=== PATIENT | female | born 1995 | race Caucasian/White ===

== ENCOUNTER 2025-02-26 03:53 | Emergency (ER) | payer BC, OTHER ==
[2025-02-26] MEDS: Ondansetron 4 MG/2 ML SDV IVPUSH STA ×2 (04:13→04:50)
[2025-02-26 04:26] LABS: BASOPHILS ABSOLUTE AUTO 0.04 K/uL (0.00-0.20); BASOPHILS PERCENT AUTO 0.6 % (0.0-1.0); EOSINOPHILS ABSOLUTE AUTO 0.05 K/uL (0.00-0.45); EOSINOPHILS PERCENT AUTO 0.8 % (0.0-6.0); IMMATURE GRAN ABSOLUTE AUTO 0.01 K/uL (0.00-0.05); IMMATURE GRAN PERCENT AUTO 0.2 % (0.0-0.4); LYMPHOCYTES ABSOLUTE AUTO 2.67 K/uL (1.00-4.80); LYMPHOCYTES PERCENT AUTO 43.1 % (24.0-44.0); MEAN PLATELET VOLUME 11.0 fL (9.4-12.3); MONOCYTES ABSOLUTE AUTO 0.40 K/uL (0.00-0.80); MONOCYTES PERCENT AUTO 6.5 % (0.0-8.0); NEUTROPHILS ABSOLUTE AUTO 3.03 K/uL (1.80-7.70); NEUTROPHILS PERCENT AUTO 48.8 % (41.0-71.0); NRBC ABSOLUTE 0.00 K/uL (0.00-0.02); NRBC PERCENT 0.0 /100WBC (0.0-0.2); PLATELET COUNT,PLT 306 K/uL (150-400); RED BLOOD CELL COUNT 3.81 M/uL (4.10-5.30); WHITE BLOOD CELL COUNT,WBC 6.20 K/uL (3.9-11.3)
[2025-02-26 04:36] LABS: A/G RATIO 1.1 (0.9-1.6); ALANINE AMINOTRANSFERASE,ALT 21.0 IU/L (14-63); ASPARTATE AMNIOTRANSFERASE,AST 23.0 IU/L (15-37); BILIRUBIN TOTAL 0.2 mg/dL (0.2-1.0); BLOOD UREA NITROGEN,BUN 8.0 mg/dL (7.0-18.0); CARBON DIOXIDE,CO2 20.2 mmol/L (21.0-32.0); CHLORIDE,CL 104.0 mmol/L (98-107); CREATININE 0.9 mg/dL (0.6-1.0); EST CRCL DRUG DOSING (CG) 93.88 mL/min; ETHANOL BLOOD MEDICAL 246.0 mg/dL; GLUCOSE RANDOM 128.0 mg/dL (74-106); POTASSIUM,K 3.2 mmol/L (3.5-5.1); PROTEIN TOTAL,TP 7.6 g/dL (6.4-8.2); SODIUM,NA 141.0 mmol/L (136-145)
[2025-02-26 04:40] LABS: ESTIMATED GFR 89.0 mL/min (>60)
[2025-02-26] MEDS: Naloxone 0.4 MG/ML SDV IVPUSH ONE ×2 (04:43→04:49)
[2025-02-26] MEDS: Flumazenil 0.1 MG/ML 5 ML MDV IVPUSH ONE ×3 (04:48→05:01)
[2025-02-26] MEDS: Potassium Chloride 20 MEQ in Premix Bag 1 BAG IV ONE (06:21)
[2025-02-26] MEDS: Potassium Chloride 20 MEQ Tab.ER PO ONE (07:07)
== END 2025-02-26 07:25 | disposition home or self-care (01) ==
LOC: MW.ED 03:53
DX: F10.129 Alcohol abuse with intoxication, unspecified (principal); Z79.899 Other long term (current) drug therapy
CPT/HCPCS: 36415; 70450; 71045; 72125; 80053; 80307; 84703; 85025; 96361; 96365; 96375; 96376; 99284; A9270; J2312; J2405; J3480; J3490; J7030; J7040